=== PATIENT | female | born 1995 | race Caucasian/White ===

== ENCOUNTER → 2018-12-12 | Outpatient (CLI) | payer BC ==
--- NOTE | 2018-12-14 23:34 | MR ---
EXAMINATION TYPE: MR tmj wo con DATE OF EXAM: 12/12/2018 COMPARISON: None HISTORY: TMJ dysfunction, clicking Standard multiplanar, multisequence MRI departmental protocol Multiplanar, multisequence images of the temporomandibular joints were acquired. Diffusion weighted i maging was performed. FINDINGS: The meniscus of the left and right temporomandibular joints is in normal position on the cl osed mouth views. On the open-mouth views there is normal position of the left side meniscus. There is abnormal anterio r subluxation of the right side meniscus on open-mouth view. There is significant reduced mobility of the right side mandibular condyle on the open mouth view. Temporomandibular joints have normal spacing. There is no evidence of focal bone destruction. The lef t and right mandibular rami appear intact. IMPRESSION: The exam shows reduced mobility of the right side mandibular condyle on the open mouth view. There is abnormal anterior meniscus position on open mouth view on the right side.
== END | disposition home or self-care (01) ==
LOC: RADMRIMAIN 15:24
PROVIDERS: ATTEND Otolaryngology Otolaryngology/Facial Plastic Surgery
DX: M26.601 Right temporomandibular joint disorder, unspecified (principal)
CPT/HCPCS: 70336

== ENCOUNTER → 2020-07-18 | Outpatient (CLI) | payer BC | END | disposition home or self-care (01) | LOC: LABMAIN 18:55 | PROVIDERS: ATTEND Emergency Medicine | DX: Z01.84 Encounter for antibody response examination (principal) | CPT/HCPCS: 36415; 86769 ==